=== PATIENT | male | born 1985 | race Caucasian/White ===

== ENCOUNTER 2022-12-18 20:01 | Emergency (ER) | payer OTHER ==
[~2022-12-18] VITALS: Ht 185.4 cm; Wt 74.8 kg
[2022-12-18 20:37] VITALS: BP 144/84
[2022-12-18] MEDS ORDERED: predniSONE 20 MG TABLET ONE (21:40)
[2022-12-18] MEDS ORDERED: predniSONE 50 MG TABLET PO ONE (22:00)
== END 2022-12-18 21:00 | disposition home or self-care (01) ==
LOC: ER 20:07
DX: M79.645 Pain in left finger(s) (principal); T63.441A Toxic effect of venom of bees, accidental (unintentional), initial encounter; Y92.89 Other specified places as the place of occurrence of the external cause
CPT/HCPCS: 99283; A6403